=== PATIENT | female | born 1975 | race Caucasian/White ===

== ENCOUNTER → 2022-10-21 12:14 | Outpatient (CLI) | payer BC, SELFPAY ==
--- NOTE | 2022-10-21 12:19 | XR_ITS ---
FINAL REPORT CLINICAL HISTORY: new type headache w/ neck pain, stiffness FINDINGS: 7 views of the cervical spine including flexion and and extension as well as oblique views were obtained. There is no acute fracture or subluxation. The vertebra are normal height. There is no malalignment. There is no evidence of facet lock. No instability is seen with flexion or extension. Soft tissues are without acute abnormality. IMPRESSION: No acute bony abnormality. No instability with flexion or extension. Reviewed, Interpreted and Dictated by tSeve Rain III, MD Transcribed by Alice Fuentes Authenticated and [facility]
[2022-10-21 13:44] LABS: Basophils % 0.3 % (0.1-2.0); Eosinophils % 0.1 % (0.1-12.0); Hematocrit 42.1 % (37.0-47.0); Lymphocytes # 2.1 K/mm3 (0.7-4.5); Lymphocytes % 29.1 % (10-50); Mean Corpuscular HGB Conc 30.8 g/dL (31.8-35.4); Mean Corpuscular Hemoglobin 29.3 pg (27.0-31.2); Mean Corpuscular Volume 95.2 fl (81-99); Mean Platelet Volume 9.1 fl (7.4-10.4); Monocytes # 0.3 K/mm3 (0.1-1.0); Monocytes % 3.9 % (1.7-9.3); Neutrophils # 4.8 K/mm3 (1.8-7.8); Neutrophils % 66.5 % (37.0-80.0); Platelet Count 222 K/mm3 (142-424); Red Blood Count 4.42 M/mm3 (4.20-5.40); Red Cell Distribution Width 15.3 % (11.5-17.5); White Blood Count 7.2 K/mm3 (4.8-10.8)
[2022-10-21 14:43] LABS: Erythrocyte Sedimentation Rate 16 mm/hr (0-20)
[2022-10-21 15:47] LABS: Alanine Aminotransferase 13 U/L (12-78); Albumin Level 3.5 g/dl (3.5-5.0); Albumin/Globulin Ratio 1.4 (1.1-1.8); Alkaline Phosphatase 68 U/L (38-126); Aspartate Amino Transferase 18 U/L (14-36); Bilirubin,Total 0.2 mg/dl (0.2-1.3); Blood Urea Nitrogen 11 mg/dl (7-17); Calcium 8.6 mg/dl (8.4-10.2); Carbon Dioxide 24 mmol/L (22.0-30.0); Chloride 108 mmol/L (98-107); Estimated Glomerular Filt Rate 77 ml/min (>60); GFR (African American) 93 ML/MIN (>60); Globulin 2.5 g/dL (1.3-3.2); Glucose 76 mg/dl (74-100); Sodium 141 mmol/L (136-145)
[2022-10-21 15:52] LABS: C-Reactive Protein 1.6 mg/L (0-4)
[2022-10-21 16:18] LABS: Thyroid Stimulating Hormone 0.36 uIU/mL (0.465-4.68)
[2022-10-21 16:56] LABS: Vitamin B12 975 pg/mL (239-931)
== END ==
PROVIDERS: PCP Family Medicine; Visit Provider Nurse Practitioner Family
DX: G89.29 Other chronic pain (principal); M54.2 Cervicalgia; R51.9 Headache, unspecified; G47.30 Sleep apnea, unspecified; E66.9 Obesity, unspecified; Z68.35 Body mass index [BMI] 35.0-35.9, adult; Z86.69 Personal history of other diseases of the nervous system and sense organs
CPT/HCPCS: 36415; 72052; 80053; 82607; 82746; 84443; 85025; 85651; 86140

== ENCOUNTER → 2022-11-04 09:22 | Outpatient (CLI) | payer BC, SELFPAY ==
--- NOTE | 2022-11-04 09:22 | MR_ITS ---
FINAL REPORT TECHNIQUE: Multiplanar and multisequence imaging of the brain was obtained before and after contrast injection. CLINICAL HISTORY: new chavis characteristics and more freq, more severe. DIZZINESS AND BLURRED VISIONON RIGHT OCCIPITAL SIDE. COMPARISON: None FINDINGS: There is no mass effect or midline shift. There are bilateral subcortical and periventricular foci of T2 abnormality. There is a cortical focus of T2 abnormality in the left frontoparietal lobe adjacent to the falx, that shows restricted diffusion on T2 weighted images along the left frontoparietal region. This does not have increased signal on the ADC map, suggesting that this represents T2 shine through. No hydrocephalus. The cerebellum and brainstem have a normal appearance. Soft tissues are without acute abnormality. Post contrast images reveal no pathologic contrast enhancement. IMPRESSION: No acute abnormality is identified. There are bilateral areas of predominantly subcortical and periventricular foci on T2 weighted images. Would favor either chronic ischemic microvascular change or demyelination. Reviewed, Interpreted and Dictated by Kassandra Pratt MD Transcribed by Jovita Trevino Authenticated and [facility]
== END ==
PROVIDERS: PCP Family Medicine; Visit Provider Nurse Practitioner Family
DX: G89.29 Other chronic pain (principal); M54.2 Cervicalgia; R51.9 Headache, unspecified
CPT/HCPCS: 70553; A9576

== ENCOUNTER 2023-05-21 15:00 | Outpatient (RCR) | payer BC, SELFPAY ==
--- NOTE | 2023-04-14 16:32 | HMH.PTOPEV ---
PT Outpatient Evaluation Rehab PT Outpatient Evaluation Start: 04/14/23 14:58 Freq: Status: Active Protocol: Document 04/14/23 14:58 JESSICA (Rec: 04/14/23 16:23 JESSICA [id number]) E-signed By Marixa Rahman, PT Outpatient Therapy Subjective History Subjective History This is an initial evaluation for 48 y/o female who presents with chronic CORREIA. Pt reports she has had HAs most of her life but these HAs are different. Her chief complaint of new CORREIA started end of August 2022 in the back right of her head. She first noticed these symptoms when her neck started to feel stiff. Pt reports her CORREIA was managed medically but has never completely went away. Pt's symptoms begin in the base of the right side of her head and extends anteriorly on the right. Pt reports her symptoms are R-sided only. 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 Pain is worse at the end of the day and is brought on by sudden turning movement especially when driving. Some B shoulder pain/ tension. Pt's goal for PT is to get rid of or at least decrease her CORREIA . PMH: Back pain, Spondylolithesis, OA in R knee , CORREIA Medical management: Tizanidine , Ubrelvy, Lidocaine topical. Some relief from medication. Imaging: Xray and Brain MRI 2022. No acute findings. New diagnosis of cancer in past 12 No months? Symptom Type Throb,Burning,Other Symptoms Relieved By Heat,Prescription Meds Symptoms Aggravated By Sitting,Twisting Prior Functional Limitations None Current Functional Limitations Lifting,Housework,Desk Work/ Reading,Driving,Sleeping, Sitting,Recreation Activity, Walking Symptom Description Constant but Variable,Pain at Rest Level of pain today (0-10) 3 Pain scale - at its best (0-10) 1 Pain scale - at its worst (0-10) 10 Cervical Eval Palpation Cervical Muscles R Cervical Paraspinal,L Cervical Paraspinal,R Suboccipital,L Suboccipital,R Upper Trapezius,L Upper Trapezius,R Thoracic Paraspinals,L Thoracic Paraspinals Cervical/Thoracic Palpation Findings Tenderness,Trigger Point Posture Head/C-Spine Posture Sitting Position Extended Head/C-Spine Posture Standing Position Extended Flexibility Deficits Upper Trapezius Muscle Length (L) Mild Tightness,(R) Moderate Tightness Levaetor Scapulae Muscle Length (L) Mild Tightness,(R) Moderate Tightness Passive Joint Mobility Cervical PIVM Dec: R OA R AA R C2/3 R C3/4 R C4/5 AROM Cervical Spine Extension Active Range of 40 Motion (degrees) Cervical Spine Flexion Active Range of 35 Motion (degrees) Cervical Spine Right Lateral Flexion 20 Active Range of Motion (degrees) Cervical Spine Left Lateral Flexion 18 Active Range of Motion (degrees) Cervical Spine Right Rotation Active 40 Range of Motion (degrees) Cervical Spine Left Rotation Active 45, tension Range of Motion (degrees) MMT Bilateral Deltoid (C5) 4- Good- Biceps Brachii Strength Grade 4- Good- Triceps Brachii Strength Grade 4- Good- Wrist Flexion Strength Grade 4- Good- Special Test C-spine Verterbral Accessory Movements Right P/A [place] that Elicit Symptoms Neck Disability Index Neck Disability Index Section 1: Pain Intensity The pain is moderate at the moment Section 2: Personal Care (washing, I can look after myself dressing, etc.) normally but it causes extra pain Section 3: Lifting I can lift heavy weights but it gives extra pain Section 4: Reading I can't read as much as I want because of moderate pain in my neck Section 5: Headaches I have headaches almost all the time Section 6: Concentration I can concentrate fully when I want to with slight difficulty Section 7: Work I cannot do my usual work Section 8: Driving I can drive my car as long as I want with moderate pain in my neck Section 9: Sleeping My sleep is moderately disturbed (2-3 hrs. sleepless) Section 10: Recreation I am able to engage in most, but not all of my usual recreation NDI Score 23 Miscellaneous Dx PT Eval Objective Objective Cervical Flexion Rotation Test (CFRT): - LR, +RR Subocciptal mm. TTP 2/4 C1-C2 Unilateral PA: TTP 2/4 / tension complaints Outpatient Therapy Assessment Impairments Problems/Impairmments Palpation Tenderness,Impaired Range of Motion,Impaired Strength,Impaired Driving, Impaired Recreational Activities,Impaired Work Activities,Impaired Desk/ Computer Activities,Subjective C/O Pain Prognosis Rehab Potential Good Comment Pt presents with chronic CORREIA whose subjective and objective findings are consistent with R-sided Cervicogenic Headache. Pt presents with impaired posture, mildly decreased cervical ROM, positive CFRT, pain with provocation to upper cervical segments and musculature, tight neck and shoulder musculature, and an NDI score reflecting moderate disability. Pt would benefit from skilled outpatient PT to address deficits and decrease chronic neck pain with headaches. Clinical Impression Consistent with Diagnosis Yes Consistent with Chronic headache Short Term Goals Number of Weeks 3 Increase Range of Motion Yes: Minimal tightness in shoulder musculature. ROM WFL pain free Increase Strength Yes: 4/5 BUE Improve Neck Disability Index Score Yes: 18/24 Decrease Subjective C/O Pain Yes: 24 hour pain avg of 3/10 to reflect dec in symptom severity and stability. 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-8 Decreased Palpation Tenderness Yes: 0/4 TTP affected muscles Increase Range of Motion Yes: WNL cervical ROM Increase Strength Yes: 5/5 BUE Improve Neck Disability Index Score Yes: Score reflecting no or mild disability to improve QOL Decrease Subjective C/O Pain Yes: 24 hour pain (CORREIA) average of 0-1/10 to improve QOL Patient to be Ind w/ Advanced HEP Yes Outpatient Therapy Plan of Care Treatment Plan May Include Therapeutic Exercise Including Home Yes Exercise Program Manual Therapy Techniques Yes Neuromuscular Re-education Yes Therapeutic Activities to Return to Yes Previous Functional/Work Level ADL/Self Care Education Yes Mechanical Traction Yes Dry Needling Yes Thermal Modalities Yes Electrical Stimulation Yes Ultrasound/Phonophoresis Yes Iontophoresis Yes Massage Yes Eval/Re-Eval Yes Frequency Times per week 1-2 times Duration Number of Weeks 6-8 Addendums This patient is a candidate for social No or vocational rehab? Patient/Guardian verbally acknowledges Yes understanding of treatment program and consents to further treatment? Patient/Guardian verbally acknowledges Yes understanding of diagnosis, prognosis and goals for treatment? Eval Complexity PT Charges 57338 - Moderate Complexity Shoulder/Elbow Eval Shoulder Objective Measurements Elbow Objective Measurements PHYSICIAN CERTIFICATION: I certify the specified therapy services for Ines Nieto are required, authorized, and reviewed every 30 days.
--- NOTE | 2023-05-14 15:49 | HMH.RHREAS ---
Rehab Reassessment Rehab OP Re-assessment Start: 04/14/23 14:58 Freq: Status: Active Protocol: Document 05/14/23 15:18 JESSICA (Rec: 05/14/23 15:49 JESSICA [email or web address]) E-signed By Marixa Rahman, PT Neck Disability Index Neck Disability Index Section 1: Pain Intensity The pain is very mild at moment Section 2: Personal Care (washing, I can look after myself dressing, etc.) normally without causing extra pain Section 3: Lifting I can lift heavy weights without extra pain Section 4: Reading I can't read as much as I want because of moderate pain in my neck Section 5: Headaches I have moderate headaches, which come frequently Section 6: Concentration I can concentrate fully when I want to with no difficulty Section 7: Work I can do most of my usual work , but no more Section 8: Driving I can drive my car as long as I want with slight pain in my neck Section 9: Sleeping My sleep is slightly disturbed (less than 1 hr sleepless) Section 10: Recreation I am able to engage in all my recreation activities with some pain in NDI Score 12 Rehab Re-assessment Subjective Subjective Pt reports she feels 25% better since initial evaluation. HEP adherence: Yes. Been performing stretches at work when sitting at desk. 24 hour pain: 3-4/10 Pain today: 3/10 Pain at worst: 10/10 Pain at best: 0/10 I had a couple of days without any headaches last week. Objective Objective Notes MMT: BUE 5/5, no pain complaints Palpation: 1/4 TTP B UTs and R Subocc. Muscle length: R UT mild-mod tightness, L UT WNL NDI: 12: Mild disability AROM: - L Rot: 70deg, painfree - R Rot: 75deg, painfree - L SB: limited, 20deg - R SB: limited, 24 - Flexion/ext: WNL Assessment Progress Assessment Progressing as Expected Assessment Notes This is a reassessment for Ines Gerson who presents to PT for c/o Chronic neck pain with HAs. Since IE, pt has been seen for 5 visits consisting of dry needling, therex, manual, and modalities prn. Pt with good attendance to scheduled PT visits and reports adherence to HEP. Since IE, pt with improvements in subjective reports of HAs and ROM. Pt particularly found lasting (~3 days) relief after first Dry Needling intervention. Pt reports she feels 25% improved since IE. Pt still presents with subjective complaints of CORREIA, neck pain, and B shoulder tension. Pt would continue to benefit from skilled outpatient physical therapy to address remaining deficits and reach LTGs. Patient goals met ST/5 Met LT/5 Met Plan Plan Continue current POC Dry needling as tolerated Frequency of Therapy 1-2 times per week Duration of therapy 6-8 Time and Billing Re-Eval Time 10 Re-Eval Billing Units 1 PHYSICIAN CERTIFICATION: I certify the specified therapy services for Ines Nieto are required, authorized, and reviewed every 30 days.
== END 2023-05-21 15:05 | disposition home or self-care (01) ==
LOC: PT 15:00
PROVIDERS: Visit Provider Nurse Practitioner Family
DX: M54.2 Cervicalgia (principal); G89.29 Other chronic pain; G43.709 Chronic migraine without aura, not intractable, without status migrainosus
CPT/HCPCS: 20560; 97035; 97110; 97140; 97163; 97164

== ENCOUNTER 2023-05-26 08:52 | Outpatient (CLI) | payer BC, SELFPAY ==
--- NOTE | 2023-05-26 08:53 | MR_ITS ---
FINAL REPORT CLINICAL HISTORY: Abnormal brain MRI, 6-month follow-up COMPARISON: 11/04/2022 FINDINGS: Multiplanar MR imaging of the brain was performed without and with contrast. On the T2 and FLAIR axial images, there are multiple scattered foci of abnormal signal in the periventricular and subcortical white matter as well as a small focus in the medial left parietal cortex. This is well-seen on image 20 of series 5. These findings are all stable as compared to the previous exam. There is no evidence of intracranial hemorrhage or mass. No abnormal extra-axial fluid collection is seen. The ventricular size is within normal limits. There is no evidence of shift of the midline structures. The posterior fossa and brainstem have an unremarkable appearance. No area of abnormal restricted diffusion is identified. No abnormal contrast enhancement is seen. Normal major vessel vascular flow voids are noted. Paranasal sinuses are well aerated. IMPRESSION: Stable foci of periventricular, subcortical, and cortical signal abnormalities which appear to be chronic. Reviewed, Interpreted and Dictated by Florin Guevara MD Transcribed by Hyun Schumacher Authenticated and [facility]
[2023-05-26] MEDS: SODIUM CHLORIDE 0.9% 10ML SYR (RAD ONLY) 10 ML IV (09:58)
[2023-05-26] MEDS: GADOTERIDOL INJ 17ML SYRINGE 17 ML IV (09:58)
== END 2023-05-26 23:59 | disposition home or self-care (01) ==
LOC: RAD 08:53
PROVIDERS: PCP Family Medicine; Visit Provider Nurse Practitioner Family
DX: R90.89 Other abnormal findings on diagnostic imaging of central nervous system (principal); R51.9 Headache, unspecified; G89.29 Other chronic pain
CPT/HCPCS: 70553; A9576